=== PATIENT | male | born 1965 | race Caucasian/White ===

== ENCOUNTER → 2016-12-02 | Outpatient (CLI) | payer OTHER ==
--- NOTE | 2016-12-03 09:35 | XR ---
Lumbosacral spine HISTORY: Pain and numbness 5 views of the lumbosacral spine, no comparisons There is no spondylolysis or spondylolisthesis. Lumbar vertebral bodies show preserved height and bon e mineralization. Loss of disc height present especially L4-5 and L5-S1 with associated vacuum phenom enon. There is multilevel spondylosis. Sclerosis present in the posterior elements. IMPRESSION: Degenerative disc disease and facet arthropathy.
--- NOTE | 2016-12-03 09:36 | XR ---
Cervical spine HISTORY: Neck pain, radiculopathy 5 views of the cervical spine No comparisons Carotid artery calcifications may be present. No significant foraminal encroachment evident. Loss of lordosis may be due to muscle spasm. Prevertebral soft tissues are normal. Cervical vertebral bodies show preserved height, alignment, and bone mineralization. IMPRESSION: Loss of cervical lordosis. Cervical MRI may be of benefit
== END | disposition home or self-care (01) ==
LOC: RADXRYALE 16:13
PROVIDERS: ATTEND Physician Assistant Medical
DX: M40.50 Lordosis, unspecified, site unspecified (principal); M51.16 Intervertebral disc disorders with radiculopathy, lumbar region; M46.86 Other specified inflammatory spondylopathies, lumbar region
CPT/HCPCS: 72050; 72110

== ENCOUNTER → 2017-09-05 | Outpatient (CLI) | payer OTHER ==
--- NOTE | 2017-09-05 16:40 | US ---
EXAMINATION TYPE: US venous doppler duplex LE RT DATE OF EXAM: 09/05/2017 3:22 PM COMPARISON: NONE CLINICAL HISTORY: 51-year-old male [id number] PAIN IN RT LOWER LEG. Pt states right calf pain SIDE PERFORMED: Right TECHNIQUE: The lower extremity deep venous system is examined utilizing real time linear array sonog shania with graded compression, doppler sonography and color-flow sonography. FINDINGS: VESSELS IMAGED: External Iliac Vein (EIV) Common Femoral Vein Deep Femoral Vein Greater Saphenous Vein * Femoral Vein Popliteal Vein Small Saphenous Vein * Proximal Calf Veins (* superficial vessels) Right Leg: Negative for DVT Results called to Rosina at Dr's office at time of exam IMPRESSION: No evidence for DVT within the right lower extremity imaged from the groin to the upper calf.
== END | disposition home or self-care (01) ==
LOC: RADUSWWP 14:54
PROVIDERS: ATTEND Family Medicine
DX: M79.661 Pain in right lower leg (principal)

== ENCOUNTER 2021-12-11 18:41 | Emergency (ER) | payer OTHER ==
[2021-12-11] MEDS ORDERED: BACITRACIN OINT 1 EACH PACKET TOPICAL ONE (20:28)
[2021-12-11] MEDS ORDERED: HYDROcodone/APAP 5-325MG 1 EACH TAB PO STA (20:29)
[2021-12-11] MEDS ORDERED: KETOROLAC 15 MG/ML 1 ML VIAL IM STA (20:29)
[2021-12-11] MEDS ORDERED: BACITRACIN ZINC 500 UNIT/GM OINT 28.4 GM TUBE TOPICAL ONE (20:32)
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
[2021-12-11 21:35] VITALS: BP 146/78; PULSE 92; RESP 16; TEMP 98.1
== END 2021-12-11 21:34 | disposition home or self-care (01) ==
LOC: EC 18:41
DX: T24.211A Burn of second degree of right thigh, initial encounter (principal); T24.231A Burn of second degree of right lower leg, initial encounter; T31.0 Burns involving less than 10% of body surface; J45.909 Unspecified asthma, uncomplicated; K21.9 Gastro-esophageal reflux disease without esophagitis; F41.9 Anxiety disorder, unspecified; F17.200 Nicotine dependence, unspecified, uncomplicated; F12.90 Cannabis use, unspecified, uncomplicated; Z79.899 Other long term (current) drug therapy; X12.XXXA Contact with other hot fluids, initial encounter
CPT/HCPCS: 99283 ×2; 96372; J1885

== ENCOUNTER → 2022-02-05 | Outpatient (CLI) | payer OTHER ==
--- NOTE | 2022-02-05 09:38 | XR ---
Right knee HISTORY: Right knee pain 3 views the right knee Suprapatellar increased density is present consistent with joint effusion. Soft tissue swelling is no terri anteriorly, correlate for cellulitis, prepatellar bursitis. Alignment is maintained. There is mar ginal spurring, subchondral sclerosis and joint space loss in the medial compartment. Questionable leanna cency involving the medial femoral condyle. Vascular calcifications are noted incidentally. Spurring present at the patellofemoral joint. IMPRESSION: Correlate for cellulitis, prepatellar bursitis. Osteoarthritis. Questionable lucent lesio n involving the medial femoral condyle, knee MRI may be of benefit.
== END | disposition home or self-care (01) ==
LOC: RADXRYALE 08:50
PROVIDERS: ATTEND Physician Assistant
DX: M17.11 Unilateral primary osteoarthritis, right knee (principal)

== ENCOUNTER → 2022-10-25 | Outpatient (CLI) | payer OTHER ==
--- NOTE | 2022-10-25 13:21 | CTL ---
EXAMINATION TYPE: CT Low Dose Lung DATE OF EXAM: 10/25/2022 12:54 PM CLINICAL INDICATION:Male, 56 years old with history of Z87.891 Personal history of tobacco use; perso nal history of tobacco use , history of tobacco use. COMPARISON: None. TECHNIQUE: Multiple axial non-contrast scans were obtained from approximately the lung apices through the upper abdomen. Coronal and sagittal reformatted images were obtained. Low dose technique was uti lized. CT DLP: 112.3 mGycm, Automated exposure control for dose reduction was used. CT Contrast: Contrast used: None Oral contrast used: None FINDINGS: ======== Lack of intravenous contrast and low dose technique limits the evaluation of the vascular and soft ti ssue structures. LUNGS: No evidence of emphysema or pulmonary fibrosis. No evidence of focal consolidation, pneumothor ax or pleural effusion. Mild centrilobular emphysema changes. Nodules: RUL: None. RML: None. RLL: None. JORGE: None. LLL: None. AIRWAY: Patent and unremarkable. HEART: Size within normal limits. Mild coronary artery atherosclerosis. MEDIASTINUM: No gross evidence of adenopathy. VASCULATURE: No aortic aneurysm. MUSCULOSKELETAL: No acute osseous abnormalities, multilevel disc degeneration changes are seen throug hout the spine. Scattered osteophyte formation and mild disc space narrowing. SOFT TISSUES/LYMPH NODES: Unremarkable. LOWER NECK: No significant findings. UPPER ABDOMEN: No significant findings. IMPRESSION: 1. No clinically significant pulmonary nodules. 2. Mild emphysema CT LUNG RAD AND CT CHEST RECOMMENDATION: Lung-Rad 1 Negative: Continue annual screening with LDCT in 12 months. S Modifier (other clinically significant findings): None Recommend smoking cessation (if current smoker), or continuation of smoking cessation (if prior smoke r). Annual screening for lung cancer with low-dose computed tomography is recommended in adults ages 55 to 77 years who have a 30 pack-year smoking history and currently smoke or have quit within the pa st 15 years. Screening should be discontinued once a person has not smoked for 15 years or develops a health problem that substantially limits life expectancy or the ability or willingness to have curat mark lung surgery. Lung rads 2021 [email or web address]
== END | disposition home or self-care (01) ==
LOC: RADCTMAIN 12:30
PROVIDERS: ATTEND Family Medicine
DX: Z12.2 Encounter for screening for malignant neoplasm of respiratory organs (principal); J43.9 Emphysema, unspecified; Z87.891 Personal history of nicotine dependence
CPT/HCPCS: 71271

== ENCOUNTER → 2024-02-27 | Outpatient (CLI) | payer OTHER ==
--- NOTE | 2024-02-27 16:05 | CTL ---
EXAMINATION TYPE: CT Low Dose Lung DATE OF EXAM ORDERED: 02/27/2024 COMPARISON: 10/25/2022 HISTORY: . Low Dose CT Lung Screening CT DLP: 85.[address] CTDI: 2.2 mGy IV CONTRAST USED: None. SCREENING VISIT: First visit TECHNIQUE: Low dose computed tomography scan was performed through the chest at 1 millimeter thick se ctions and reconstructed images in the coronal plane at [address] DIAGNOSTIC QUALITY: Satisfactory FINDINGS: LUNG NODULES: Not presentLeft lung: no nodules identified.Right lung: no nodules identified. LUNGS: COPD: Severity: Mild Fibrosis: Severity:None Lymph nodes: None Other findings: None RIGHT PLEURAL SPACE: Effusion: None Calcification: None Thickening: None Pneumothorax: None LEFT PLEURAL SPACE: Effusion: None Calcification: None Thickening: None Pneumothorax: None HEART: Heart Size: Mildly enlarged Coronary calcification: Mild Pericardial effusion: None OTHER FINDINGS: Upper abdomen: No significant abnormality Bony thorax: Degenerative changes Supraclavicular region: No significant abnormalityOther: No significant abnormalityI IMPRESSION: No pulmonary nodules greater than [address] CHEST RECOMMENDATION: Follow-up screening in one year CT LUNG RAD: LUNG RAD CATEGORY 1 negative
== END | disposition home or self-care (01) ==
LOC: RADCTMAIN 15:01
PROVIDERS: ATTEND Family Medicine
DX: Z12.2 Encounter for screening for malignant neoplasm of respiratory organs (principal); F17.210 Nicotine dependence, cigarettes, uncomplicated
CPT/HCPCS: 71271

== ENCOUNTER → 2025-04-30 | Outpatient (CLI) | payer OTHER ==
--- NOTE | 2025-04-30 14:48 | CTL ---
EXAMINATION TYPE: CT Low Dose Lung DATE OF EXAM ORDERED: 04/30/2025 COMPARISON: 02/27/2024 CLINICAL INDICATION: Male, 59 years old with history of Z12.2 SCREENING LUNG CA F17.210 CURRENT SMOKE R; PHH, personal tobacco use, Lung cancer screening, History of Smoking/tobacco use. TECHNIQUE: Low dose computed tomography scan was performed through the chest at 1 mm thick sections a nd reconstructed images in multiple planes at 1 mm and [address] DLP: 75.[address] CTDI: 2.1 mGy Automated exposure control for dose reduction was used. CT DIAGNOSTIC QUALITY: Satisfactory Findings: There are no new or suspicious lung nodules. There is no lung consolidation or abnormal interstitial density. There is no pleural effusion or pneumothorax. The great vessels and heart are normal in size. There is no mediastinal, hilar or axillary adenopathy. Limited scanning through the upper abdomen reveals no gross abnormality. There are no focal osseous lesions. IMPRESSION: 1. Lung RADS category 1 negative. Continue routine screening at yearly intervals. 2. No acute cardio pulmonary disease. [facility], , 04/30/2025 2:46 PM
== END | disposition home or self-care (01) ==
LOC: RADCTMAIN 09:58
PROVIDERS: ATTEND Family Medicine
DX: Z12.2 Encounter for screening for malignant neoplasm of respiratory organs (principal); F17.210 Nicotine dependence, cigarettes, uncomplicated
CPT/HCPCS: 71271